=== PATIENT | male | born 1990 | race Caucasian/White ===

== ENCOUNTER 2018-12-07 09:45 | Emergency (ER) | payer BC ==
[2018-12-07 09:54] VITALS: RESP 16; TEMP 98.2; O2SAT 98; BMI 30.4
--- NOTE | 2018-12-07 10:40 | ED PDOC ---
HPI: Male Pain Time Seen by Provider: 12/07/18 10:12 Chief Complaint (Nursing): Male Genitourinary Chief Complaint (Provider): Dyuria History Per: Patient Additional Complaint(s): 28 y/o M with no significant PMH who presents withy dysuria x 4 days with urinary frequency. Also noted some irritation at tip of penis. Pt saw PMD 2 days ago who ruled out STI but patient unsure how it was done. Was started on Cipro and Phenazopyridine. Sx have persisted despite meds and now noticed painless ulceration on penis and foreskin. Denies fever, chills, night sweats, penile discharge. Past Medical History Reviewed: Historical Data, Nursing Documentation, Vital Signs Vital Signs: Last Vital Signs Temp 98.2 F 12/07/18 09:53 Pulse 91 H 12/07/18 09:53 Resp 16 12/07/18 09:53 BP 155/80 H 12/07/18 09:53 Pulse Ox 98 12/07/18 09:53 - Medical History PMH: Asthma (CHILDHOOD NO LONGER) Denies: Chronic Kidney Disease - Family History Family History: States: Unknown Family Hx - Immunization History Hx Tetanus Toxoid Vaccination: No - Home Medications Home Medications: Ambulatory Orders Medication Instructions Recorded Home Med 1 puff INH DAILY PRN 10/05/14 No Known Home Med 01/28/16 - Allergies Allergies/Adverse Reactions: Allergies Allergy/AdvReac Type Severity Reaction Status Date / Time No Known Allergies Allergy Verified 07/17/14 10:18 Review of Systems Constitutional: Negative for: Fever, Chills Genitourinary Male: Positive for: Dysuria, Frequency. Negative for: Hematuria, Penile Discharge, Scrotal Pain, Penile Pain Physical Exam - Reviewed Nursing Documentation Reviewed: Yes Vital Signs Reviewed: Yes - Physical Exam Appears: Positive for: Well Gastrointestinal/Abdominal: Positive for: Normal Exam Male Genital Exam: Positive for: inguinal tenderness (+ Right inguinal adenopathy), lesions (2 papules non-tender papules with ulceration on Right side of shaft of penis and Right side of foreskin, no erythematous base. Mild irritation at urethral meatus ), other (exam performed in the presence of SANCHEZ Bell and SANCHEZ Palomino). Negative for: scrotum tenderness (R), scrotum tenderness (L), testicular tenderness (R), testicular tenderness (L), urethral discharge Neurological/Psych: Positive for: Awake, Alert - ECG O2 Sat by Pulse Oximetry: 98 Medical Decision Making Medical Decision Making: Rocephin 250mg IM x 1 Azithromycin 1G PO x 1 RPR Genital culture Chlamydia/GC culture Disposition - Clinical Impression Clinical Impression: Sexually transmitted disease - Patient ED Disposition Is Patient to be Admitted: No - Disposition Referrals: Jen Shelton MD [Medical Doctor] - Disposition: Routine/Home Disposition Time: 12:50 Condition: STABLE Additional Instructions: Follow up with urologist in 1 - 2 weeks. Avoid sexual activity for at least one week. We will call you with results of your cultures. Continue Cipro and Phenazopyridine as prescribed. Return to ER if you develop fevers or worsening symptoms. Instructions: Sexually-Transmitted Diseases (DC), STD Prevention Forms: [facility] ([place]), [facility] ED School/Work Excuse Print Language: SLOVENIAN
[2018-12-07] MEDS ORDERED: cefTRIAXone (Rocephin) 250 mg Inj IM STA (10:50)
[2018-12-07] MEDS ORDERED: Sterile Water 10 ML IV ONE (11:41)
[2018-12-07] MEDS ORDERED: cefTRIAXone (Rocephin) 250 mg Inj ONE (11:41)
[2018-12-07 11:46] LABS: URINE BACTERIA RARE (<OCC); URINE BILIRUBIN NEGATIVE (NEGATIVE); URINE BLOOD NEGATIVE (NEGATIVE); URINE CLARITY CLEAR (Clear); URINE GLUCOSE (UA) NEG (NEGATIVE); URINE LEUKOCYTE ESTERASE NEG Leu/uL (Negative); URINE PROTEIN NEGATIVE (NEGATIVE); URINE UROBILINOGEN 0.2-1.0 mg/dL (0.2-1.0)
[2018-12-07 11:53] LABS: URINE COLOR YELLOW (YELLOW)
[2018-12-07 12:46] VITALS: BP 138/74; PULSE 76
== END 2018-12-07 12:36 | disposition home or self-care (01) ==
LOC: H.ER 09:45
DX: A64 Unspecified sexually transmitted disease (principal); J45.909 Unspecified asthma, uncomplicated
CPT/HCPCS: 81003; 86592; 87070; 87086; 87491; 87591; 96372; 99283; J0696